=== PATIENT | male | born 1980 | race African-American/Black ===

== ENCOUNTER 2020-12-06 17:54 | Emergency (ER) | payer MEDICARE, MEDICAID ==
[2020-12-06] MEDS ORDERED: ZESTRIL40 M1 PO (19:11)
[2020-12-06] MEDS ORDERED: NORVASC 10MG10 MG PO (19:11)
[2020-12-06] MEDS ORDERED: DILAUDID8 M1 PO (19:12)
[2020-12-06] MEDS ORDERED: PHENERGAN 25 TA25 MG PO (19:12)
[2020-12-06] MEDS ORDERED: ZOFRAN4 M2 (19:12)
[2020-12-06] MEDS ORDERED: ENBREL50 MG/1 ML (19:13)
[2020-12-06 19:23] LABS: EOS # 0.1 (0.04-0.40); EOS % 1.1 % (0.0-4.0); HEMATOCRIT 40.5 % (42.0-52.0); HEMOGLOBIN 13.1 g/dL (13.5-18.0); LYMPH# 2.5 (1.50-4.00); MEAN CELL VOLUME 91 fl (78-100); MEAN CORPUSCULAR HEMOGLOBIN 29 pg (27-31); MEAN CORPUSCULAR HGB CONC 32 g/dL (33-37); MEAN PLATELET VOLUME 8.4 fl (7.4-10.4); MONO # 0.8 (0.20-0.80); NEU # 6.2 (1.40-6.50); PLATELET COUNT 352 K/mm3 (130-400); RED BLOOD COUNT 4.45 M/mm3 (4.20-5.60); RED CELL DISTRIBUTION WIDTH 14.8 % (11.5-14.5); WHITE BLOOD COUNT 9.6 K/mm3 (4.8-10.8)
[2020-12-06 19:31] LABS: ALBUMIN 4.2 g/dL (3.5-5.0); POTASSIUM 3.5 mmol/L (3.5-5.1)
[2020-12-06 19:34] LABS: TOTAL PROTEIN 7.3 g/dL (6.4-8.3)
[2020-12-06 19:36] LABS: TOTAL BILIRUBIN 0.2 mg/dL (0.2-1.2)
[2020-12-06 20:55] LABS: URINE WBC 0 /hpf (0-3)
[2020-12-06 21:13] LABS: URINE APPEARANCE HAZY; URINE COLOR YELLOW
[2020-12-06 21:14] LABS: URINE BILIRUBIN NEGATIVE (NEGATIVE); URINE BLOOD NEGATIVE (NEGATIVE); URINE GLUCOSE NEGATIVE (NEGATIVE); URINE KETONE NEGATIVE (NEGATIVE); URINE LEUKOCYTE ESTERASE NEGATIVE (NEGATIVE); URINE MUCUS PRESENT (NOT PRESENT); URINE NITRATE NEGATIVE (NEGATIVE); URINE PROTEIN(semi-quant) TRACE mg/dL (NEGATIVE); URINE UROBILINOGEN NORMAL (NORMAL)
[2020-12-06 21:32] VITALS: BP 121/89
== END 2020-12-06 21:36 | disposition home or self-care (01) ==
LOC: ED 17:54
PROVIDERS: Physician Assistant
DX: G89.29 Other chronic pain (principal); L66.2 Folliculitis decalvans; R11.0 Nausea; Z88.8 Allergy status to other drugs, medicaments and biological substances; Z88.5 Allergy status to narcotic agent
CPT/HCPCS: J1170; J2550

== ENCOUNTER 2023-01-28 15:05 | Emergency (ER) | payer MEDICARE, MEDICAID ==
[~2023-01-28] VITALS: Ht 185.4 cm; Wt 115.9 kg
[~2023-01-28 15:05] MED LIST: DILAUDID8 M1 PO; ENBREL50 MG/1 ML; NORVASC 10MG10 MG PO; PHENERGAN 25 TA25 MG PO; ZESTRIL40 M1 PO; ZOFRAN4 M2
[2023-01-28] MEDS ORDERED: ESCITALOPRAM10 MG PO (15:50)
[2023-01-28] MEDS ORDERED: PANTOPRAZOLE SO40 MG PO (15:51)
[2023-01-28] MEDS ORDERED: CLEOCIN HCL150 M1 PO (17:32)
[2023-01-28 18:08] VITALS: BP 137/91
== END 2023-01-28 17:48 | disposition home or self-care (01) ==
LOC: ED 15:05
DX: L03.811 Cellulitis of head [any part, except face] (principal); L03.211 Cellulitis of face; L03.314 Cellulitis of groin; G89.29 Other chronic pain; R11.2 Nausea with vomiting, unspecified; L66.2 Folliculitis decalvans; Z28.81 Immunization not carried out due to patient having had the disease; Z28.311 Partially vaccinated for COVID-19; Z79.891 Long term (current) use of opiate analgesic
CPT/HCPCS: J1170; J2550